=== PATIENT | female | born 1955 | race Caucasian/White ===

== ENCOUNTER 2017-12-10 10:55 | Outpatient (CLI) | payer BC | END 2017-12-10 10:56 | disposition home or self-care (01) | LOC: BICMAMMO 10:55 | PROVIDERS: ATTEND Family Medicine | DX: Z13.820 Encounter for screening for osteoporosis (principal) | CPT/HCPCS: 77080 ==

== ENCOUNTER 2018-03-01 10:48 | Outpatient (CLI) | payer BC ==
--- NOTE | 2018-03-01 11:48 | RAD ---
PA AND LATERAL CHEST RADIOGRAPH: Date: 03-01-18 History: Shortness of breath for a couple of weeks. FINDINGS: Cardiac silhouette and pulmonary vasculature are within normal limits. Lungs are clear. Minimal degen erative changes are seen in the spine. IMPRESSION: No acute cardiopulmonary process. POS: [facility]
== END 2018-03-01 10:49 | disposition home or self-care (01) ==
LOC: SCSRAD 10:48
PROVIDERS: ATTEND Family Medicine
DX: R06.09 Other forms of dyspnea (principal)
CPT/HCPCS: 71046

== ENCOUNTER 2020-07-24 09:47 | Outpatient (CLI) | payer MEDICARE, BC | END 2020-07-24 09:48 | disposition home or self-care (01) | LOC: DTY/OP 09:47 | PROVIDERS: ATTEND Family Medicine | DX: R73.03 Prediabetes (principal) | CPT/HCPCS: 36415; 80053; 97802 ==

== ENCOUNTER 2021-09-15 12:00 | Outpatient (CLI) | payer MEDICARE, BC ==
[2021-09-15 13:29] LABS: #Eosinphils 0.1 10x3/uL (0.0-0.5); #Monocytes 0.6 10x3/uL (0.0-1.1); #Neutrophils 3.8 10x3/uL (1.5-8.4); %Basophils 0.4 % (0.0-2.0); %Eosinophils 1.5 % (0.0-6.0); %Lymphocytes 12.5 % (18.0-47.0); %Monocytes 11.6 % (0.0-10.0); %Neutrophils 73.6 % (40.0-75.0); Mean Corpuscular HGB CONC 33.2 g/dL (32.0-36.0); Mean Corpuscular Hemoglobin 30.3 pg (27.0-33.0); Mean Corpuscular Volume 91.1 fl (81.6-98.3); Mean Platelet Volume 9.6 fl (7.4-10.4); Platelet Count 209 10x3/uL (150-450); RBC Distribution Width 12.4 % (11.5-14.5); Red Blood Cell (RBC) Count 4.29 10x6/uL (3.90-5.03); White Blood Cell (WBC) Count 5.2 10x3/uL (3.5-10.5)
[2021-09-15 13:39] LABS: Anion Gap 12 mmol/L (10-20); BUN (Urea Nitrogen) 14 mg/dL (9.8-20.1); Calc. Creatinine Clearance 0 mL/min (70-130); Calcium 8.8 mg/dL (7.8-10.44); Carbon Dioxide 23 mmol/L (23-31); Chloride 106 mmol/L (98-107); Glucose 161 mg/dL (80-115); Potassium 3.7 mmol/L (3.5-5.1); Sodium 137 mmol/L (136-145)
[2021-09-15 22:27] LABS: SARS-CoV-2 PCR by NAA Not Detected (NotDetected)
== END 2021-09-15 12:01 | disposition home or self-care (01) ==
LOC: LABBT 12:00
PROVIDERS: ATTEND Specialist
DX: Z01.818 Encounter for other preprocedural examination (principal); Z20.822 Contact with and (suspected) exposure to COVID-19
CPT/HCPCS: 71046; 80048; 85025; 93005; U0003; U0005; 93010

== ENCOUNTER 2021-09-18 07:01 | Day surgery (SDC) | payer MEDICARE, BC ==
[2021-09-16 10:47] VITALS: BMI 25.3
[2021-09-18] MEDS ORDERED: ceFAZolin 2 GM/DEX 5% 100 ML BAG ONE (08:10)
[2021-09-18] MEDS ORDERED: Ketorolac Tromethamine 30 MG/ML VIAL ONE (08:10)
[2021-09-18] MEDS ORDERED: Acetaminophen 500 MG TAB ONE (08:10)
[2021-09-18] MEDS ORDERED: Bupivacaine PF 0.5% 30 ML VIAL ONE (08:55)
[2021-09-18] MEDS ORDERED: EPINEPHrine 1 MG/ML AMP ONE (08:55)
[2021-09-18] MEDS ORDERED: Isosulfan Blue 50 MG/5 ML VIAL ONE (08:55)
[2021-09-18] MEDS ORDERED: Fentanyl 100 MCG/2 ML VIAL ONE (09:09)
[2021-09-18] MEDS ORDERED: Lidocaine 1% PF 5 ML VIAL ONE (09:28)
[2021-09-18] MEDS ORDERED: Dexamethasone 20 MG/5 ML VIAL ONE (09:28)
[2021-09-18] MEDS ORDERED: PROPOFOL 200 MG/20 ML VIAL ONE (09:28)
[2021-09-18] MEDS ORDERED: Ondansetron PF 4 MG/2 ML Vial ONE (09:28)
== END 2021-09-18 12:09 | disposition home or self-care (01) ==
LOC: SDC 07:01
PROVIDERS: ATTEND Specialist
PROC: 0HBT0ZZ Excision of Right Breast, Open Approach (ICD-10-PCS; principal; 2021-09-18)
DX: D05.11 Intraductal carcinoma in situ of right breast (principal); N60.91 Unspecified benign mammary dysplasia of right breast; N60.31 Fibrosclerosis of right breast; E78.5 Hyperlipidemia, unspecified; G47.33 Obstructive sleep apnea (adult) (pediatric); M19.90 Unspecified osteoarthritis, unspecified site; R73.03 Prediabetes; Z79.899 Other long term (current) drug therapy
CPT/HCPCS: 19301; C1713; 88307; J0171; J1100; J1885; J2405; J2704; J3010; Q9968; S0020

== ENCOUNTER 2022-03-24 08:05 | Outpatient (CLI) | payer MEDICARE, BC | END 2022-03-24 08:06 | disposition home or self-care (01) | LOC: BICMAMMO 08:05 | PROVIDERS: ATTEND Internal Medicine Rheumatology | DX: M81.0 Age-related osteoporosis without current pathological fracture (principal) | CPT/HCPCS: 77080 ==

== ENCOUNTER 2022-07-23 12:40 | Outpatient (CLI) | payer MEDICARE, BC | END 2022-07-23 12:41 | disposition home or self-care (01) | LOC: TBSIIMAG 12:40 | PROVIDERS: ATTEND Anesthesiology Pain Medicine | DX: M48.062 Spinal stenosis, lumbar region with neurogenic claudication (principal); M51.36 Other intervertebral disc degeneration, lumbar region; M51.37 Other intervertebral disc degeneration, lumbosacral region | CPT/HCPCS: 72148 ==

== ENCOUNTER 2022-12-22 10:26 | Outpatient (CLI) | payer MEDICARE | END 2022-12-22 10:27 | disposition home or self-care (01) | LOC: TBSIIMAG 10:26 | PROVIDERS: ATTEND Anesthesiology Pain Medicine | DX: M47.22 Other spondylosis with radiculopathy, cervical region (principal); M47.813 Spondylosis without myelopathy or radiculopathy, cervicothoracic region | CPT/HCPCS: 72141 ==